=== PATIENT | female | born 1955 | race Caucasian/White ===

== ENCOUNTER 2019-01-25 11:38 | Day surgery (SDC) | payer OTHER ==
--- NOTE | 2019-01-24 10:28 | HP ---
HISTORY OF PRESENT ILLNESS: Ms. 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 She is currently not on dialysis. She is seeing Dr. Vigil followed by Dr. Damaso Garcia and I have asked to see her regarding establishing a peritoneal dialysis access. She has a brother who is being evaluated for a kidney donor. I have talked to her extensively about consideration of hemodialysis access left arm, but at this time, she wishes to proceed with peritoneal dialysis. The patient understands risks of infection, bleeding, reoperation. We will plan laparoscopic peritoneal dialysis catheter placement. PAST MEDICAL HISTORY: Asthma, hypertension, diabetes mellitus, obesity. SOCIAL HISTORY: Tobacco none. Alcohol none. PAST SURGICAL HISTORY: C-sections x2, tubal , shoulder surgery, knee surgery. She is up-to-date on her colonoscopy. She has had a laparoscopic cholecystectomy in 2017. MEDICATIONS: 1. Pravastatin. 2. Januvia. 3. Amlodipine 10 mg daily, 100 mg daily and 10 mg daily respectively. ALLERGIES: HYDROCODONE CAUSES VOMITING. MEDICATIONS: 1. ProAir HFA as needed. 2. Januvia 100 mg daily. 3. Pravastatin 20 mg daily. 4. Amlodipine 5 mg 2 tablets daily. 5. Tramadol as needed for pain. 6. Zantac. 7. Vitamin D. 8. Cholecalciferol. PHYSICAL EXAMINATION: VITAL SIGNS: Weight 177 pounds, 5 foot 1, 33 BMI, 160/84, 79, 98 degrees. HEAD, EYES, EARS, NOSE AND THROAT: Unremarkable. LUNGS: Clear to auscultation. CARDIAC: Rhythm. No murmur or gallop. ABDOMEN: Soft and nontender. No hernias. Slightly obese. EXTREMITIES: Unremarkable, palpable radial pulses. ASSESSMENT/PLAN: 1. Chronic kidney disease, not yet having started dialysis. She lives in [place]. Plan is for laparoscopic peritoneal dialysis catheter placement. She understands risks and benefits and consents. I have asked her to consider hemodialysis and she is not interested at this time, but she had further questions and if she does change her mind during the same general anesthetic, we could perform a left arm fistula. She desires this in her upper arm and not in her wrist. 2. Diabetes mellitus. 3. Hypertension. 4. Asthma. Job ID: [id number]
[2019-01-24 12:20] VITALS: BMI 33.4
[2019-01-25 12:44] LABS: #Basophils 0.1 thou/uL (0.0-0.2); #Eosinphils 0.6 thou/uL (0.0-0.7); #Lymphocytes 2.1 thou/uL (1.20-3.40); #Monocytes 0.8 thou/uL (0.11-0.59); #Neutrophils 5.7 thou/uL (1.40-6.50); %Basophils 1.3 % (0.0-1.0); %Eosinophils 6.4 % (0.0-10.0); %Lymphocytes 22.4 % (21.0-51.0); %Monocytes 8.1 % (0.0-10.0); %Neutrophils 61.8 % (42.0-75.0); Hemoglobin 13.6 g/dL (12.0-16.0); Mean Corpuscular HGB CONC 33.3 g/dL (32.0-36.0); Mean Corpuscular Hemoglobin 28.8 pg (27.0-31.0); Mean Corpuscular Volume 86.3 fL (78.0-98.0); Mean Platelet Volume 7.4 fL (7.4-10.4); Platelet Count 372 thou/uL (130-400); RBC Distribution Width 11.8 % (11.5-14.5); Red Blood Cell (RBC) Count 4.72 mill/uL (4.20-5.40); White Blood Cell (WBC) Count 9.3 thou/uL (4.8-10.8)
[2019-01-25 12:57] LABS: Anion Gap 16 mmol/L (10-20); BUN (Urea Nitrogen) 57 mg/dL (9.8-20.1); Calc. Creatinine Clearance 19 mL/min (70-130); Carbon Dioxide 22 mmol/L (23-31); Chloride 104 mmol/L (98-107); Estimated GFR-MDRD 12; Glucose 123 mg/dL (80-115); Potassium 3.7 mmol/L (3.5-5.1); Sodium 138 mmol/L (136-145)
[2019-01-25] MEDS ORDERED: Midazolam HCl 2 mg/2 ml Vial ONE (13:20)
[2019-01-25] MEDS ORDERED: Fentanyl 100 MCG/2 ML VIAL ONE (13:22)
[2019-01-25] MEDS ORDERED: Protamine Sulfate 50 MG/5 ML VIAL ONE (13:26)
[2019-01-25] MEDS ORDERED: Lidocaine 2% PF 5 ML VIAL ONE (13:26)
[2019-01-25] MEDS ORDERED: Heparin 10,000 UNITS/1 ML VIAL ONE (13:26)
[2019-01-25] MEDS ORDERED: Heparin 5,000 UNITS/ML VIAL ONE (13:26)
[2019-01-25] MEDS ORDERED: Bupivacaine HCl 0.5%/Epinephrine 1:200,000/PF 30 ml Vial ONE (13:26)
[2019-01-25] MEDS ORDERED: Ketamine 50 MG/ML (10ML VIAL) ONE (13:35)
[2019-01-25] MEDS ORDERED: Bupivacaine/Epinephrine 0.25% 30 ML VIAL ONE (14:23)
[2019-01-25] MEDS ORDERED: Morphine 2 MG/ML SYRINGE ONE (16:22)
[2019-01-25] MEDS ORDERED: Promethazine HCl 25 MG/ML VIAL ONE (16:23)
--- NOTE | 2019-01-25 16:26 | OP ---
DATE OF PROCEDURE: 01/25/2019 PREOPERATIVE DIAGNOSES: 1. Chronic kidney disease, not yet started dialysis. 2. Obesity. POSTOPERATIVE DIAGNOSES: 1. Chronic kidney disease, not yet started dialysis. 2. Obesity. 3. Veins inadequate for a fistula prosthetic graft not placed. PROCEDURES PERFORMED: Laparoscopic peritoneal dialysis catheter, double cuffed pigtail. Laparoscopic omentopexy. Expiration of left proximal volar forearm, finding the cephalic vein too small for fistula and wound closure. ANESTHESIA: General, local 0.5% Marcaine with epinephrine 30 mL, mixed with 0.25% Marcaine with epinephrine 30 mL. DESCRIPTION OF PROCEDURE: The patient was taken to the operating room where under general anesthesia, abdomen, left upper extremity, axilla and shoulder, chest wall prepared with ChloraPrep and draped in routine fashion. Local anesthetic was infiltrated in the skin and subcutaneous tissue about the operative sites. Bilateral subcostal far lateral incision was made. Pneumoperitoneum to 15 mmHg was obtained with a Veress needle, replaced with a 5 port, video laparoscope inserted. Contralateral port placed under laparoscopic visualization. A stab incision was made at the planned exit site and a counter incision was made just superior and medial to this off the midline, and an 8 mm port was placed through this counter incision, directed caudally through the subcutaneous tissue into the rectus sheath, visualized laparoscopically penetrating the abdominal wall toward the pelvis, delivering the peritoneal dialysis catheter double cuffed, placing the internal cuff in the rectus sheath and removing the 8 mm port. [place] dissector was placed through the planned exit site into the counterincision, grasping the catheter and bringing the catheter out. The planned exit site with external cuff beneath the skin exit site. Subcutaneous tissue was approximated with 3-0 Monocryl, skin with subdermal 4-0 Monocryl, and catheter flushed with heparinized saline solution of 1000 units heparin per 10 mL, and catheter placed and sterile dressings applied. Omentopexy performed with transabdominal wall fixation suture of 2-0 Vicryl, fixating the omentum to the anterior abdominal wall, taking down the single adhesion of omentum to the colon at the tanesha. Once this was completed, good hemostasis noted. Irrigant and pneumoperitoneum evacuated. All instruments were removed. All skin incisions were approximated with interrupted subdermal 4-0 Monocryl and [place] glue applied. Incision was made in the proximal volar forearm, left below the antecubital fossa, carried down to the skin and subcutaneous tissue and the cephalic vein was too small for fistula. No communication in basilic vein noted. Subcutaneous tissue was approximated with 3-0 Monocryl, skin with subdermal 4-0 Monocryl, and [place] glue applied. Job ID: [id number]
[2019-01-25] MEDS ORDERED: PROPOFOL 200 MG/20 ML VIAL ONE (16:29)
[2019-01-25] MEDS ORDERED: Ondansetron PF 4 MG/2 ML Vial ONE (16:29)
[2019-01-25] MEDS ORDERED: Dexamethasone 20 MG/5 ML VIAL ONE (16:29)
[2019-01-25] MEDS ORDERED: Glycopyrrolate 0.2 MG/ML 5 ML SYRINGE ONE (16:29)
[2019-01-25] MEDS ORDERED: Rocuronium Bromide 10 MG/ML (10ML VIAL) ONE (16:29)
== END 2019-01-25 17:20 | disposition home or self-care (01) ==
LOC: SDC 11:38
PROVIDERS: ATTEND Specialist
PROC: 0WHG43Z Insertion of Infusion Device into Peritoneal Cavity, Percutaneous Endoscopic Approach (ICD-10-PCS; principal; 2019-01-25)
PROC: 0DQU4ZZ Repair Omentum, Percutaneous Endoscopic Approach (ICD-10-PCS; principal; 2019-01-25)
DX: I12.0 Hypertensive chronic kidney disease with stage 5 chronic kidney disease or end stage renal disease (principal); E11.22 Type 2 diabetes mellitus with diabetic chronic kidney disease; N18.6 End stage renal disease; E78.5 Hyperlipidemia, unspecified; J45.909 Unspecified asthma, uncomplicated; K21.9 Gastro-esophageal reflux disease without esophagitis; E66.9 Obesity, unspecified; Z68.33 Body mass index [BMI] 33.0-33.9, adult; Z79.84 Long term (current) use of oral hypoglycemic drugs; Z79.899 Other long term (current) drug therapy; Z88.5 Allergy status to narcotic agent; Z88.8 Allergy status to other drugs, medicaments and biological substances; Z98.890 Other specified postprocedural states
CPT/HCPCS: 36415; 80048; 85025; 93005; 93010; J0131; J0670; J0690; J1100; J1644; J2001; J2250; J2270; J2405; J2550; J2704; J2720; J3010

== ENCOUNTER 2021-12-03 09:04 | Outpatient (CLI) | payer OTHER | END 2021-12-03 09:05 | disposition home or self-care (01) | LOC: BICMAMMO 09:04 | PROVIDERS: ATTEND Family Medicine | DX: Z12.31 Encounter for screening mammogram for malignant neoplasm of breast (principal); Z80.3 Family history of malignant neoplasm of breast | CPT/HCPCS: 77063; 77067 ==

== ENCOUNTER 2022-12-01 12:31 | Outpatient (CLI) | payer MEDICARE | END 2022-12-01 12:32 | disposition home or self-care (01) | LOC: SCSMRI 12:31 | PROVIDERS: ATTEND Psychiatry & Neurology Neurology | DX: R41.3 Other amnesia (principal); G31.9 Degenerative disease of nervous system, unspecified; R90.89 Other abnormal findings on diagnostic imaging of central nervous system | CPT/HCPCS: 70551 ==

== ENCOUNTER 2022-12-15 11:03 | Outpatient (CLI) | payer MEDICARE | END 2022-12-15 11:04 | disposition home or self-care (01) | LOC: BICMAMMO 11:03 | PROVIDERS: ATTEND Family Medicine | DX: Z12.31 Encounter for screening mammogram for malignant neoplasm of breast (principal); Z80.3 Family history of malignant neoplasm of breast | CPT/HCPCS: 77063; 77067 ==

== ENCOUNTER 2023-10-11 07:50 | Emergency (ER) | payer OTHER, MEDICARE ==
[2023-10-11] MEDS ORDERED: Lidocaine 1% w/Epinephrine 1:100K 20 ML VIAL ONE (08:05)
== END 2023-10-11 08:39 | disposition home or self-care (01) ==
LOC: ERS 07:50
DX: L02.415 Cutaneous abscess of right lower limb (principal); D84.9 Immunodeficiency, unspecified; E11.9 Type 2 diabetes mellitus without complications; I10 Essential (primary) hypertension
CPT/HCPCS: 10060; 87070; 87205

== ENCOUNTER 2024-03-16 17:18 | Emergency (ER) | payer OTHER ==
[2024-03-16] MEDS ORDERED: Acyclovir 800 mg Tablet PO SCH (18:15)
[2024-03-16 19:21] LABS: Anion Gap 14 mmol/L (10-20); BUN (Urea Nitrogen) 19 mg/dL (9.8-20.1); Calc. Creatinine Clearance 0 mL/min (70-130); Calcium 9.4 mg/dL (7.8-10.44); Carbon Dioxide 22 mmol/L (23-31); Chloride 102 mmol/L (98-107); Estimated GFR 63; Glucose 147 mg/dL (80-115); Potassium 2.8 mmol/L (3.5-5.1); Sodium 135 mmol/L (136-145)
[2024-03-16] MEDS ORDERED: Potassium Chloride 20 MEQ TAB ONE (19:28)
== END 2024-03-16 19:49 | disposition home or self-care (01) ==
LOC: ERS 17:18
DX: B02.9 Zoster without complications (principal); E87.6 Hypokalemia; E11.9 Type 2 diabetes mellitus without complications; I10 Essential (primary) hypertension; Z79.82 Long term (current) use of aspirin; Z79.899 Other long term (current) drug therapy
CPT/HCPCS: 36415; 80048; 99282